=== PATIENT | male | born 1995 | race Caucasian/White ===

== ENCOUNTER 2017-10-13 19:48 | Inpatient (IN) | payer MEDICAID ==
[~2017-10-13] VITALS: Ht 165.1 cm; Wt 79.1 kg
[2017-10-13 19:57] VITALS: Ht 165.1 cm; Wt 79.1 kg
[2017-10-13 22:07] LABS: BASOPHIL % 0.3 % (0-2); PLATELET COUNT 279 x10^3mcL (130-400); RED CELL DISTRIBUTION WIDTH 12.9 % (11.5-14.5)
[2017-10-13 22:28] LABS: ALBUMIN 3.9 g/dL (3.4-5.0); ALKALINE PHOSPHATASE 80 U/L (46-116); ALT/SGPT 34 U/L (16-63); AST/SGOT 17 U/L (15-37); BILIRUBIN TOTAL 0.76 mg/dL (0.20-1.00); CALCIUM 9.1 mg/dL (8.5-10.1); CARBON DIOXIDE 25.3 mmol/L (21-32); CHLORIDE SERUM 104 mmol/L (98-107); CREATININE SERUM 0.8 mg/dL (0.7-1.3); GFR1 > 60 mL/min; GLUCOSE SERUM 98 mg/dL (74-106); POTASSIUM SERUM 3.6 mmol/L (3.5-5.1); SODIUM SERUM 141 mmol/L (136-145); TOTAL PROTEIN, SERUM 6.7 g/dL (6.4-8.2)
[2017-10-13 22:31] LABS: MAGNESIUM 2.1 mg/dL (1.8-2.4); PHOSPHOROUS 4.5 mg/dL (2.5-4.9)
[2017-10-13 22:32] LABS: CHOLESTEROL/HDL RATIO 2.4
[2017-10-13 22:44] LABS: FREE T4 1.29 ng/dL (0.76-1.46); FREE THYROXINE INDEX 2.7 ug/dL (1.4-4.5); T4(THYROXINE) 7.7 ug/dL (4.7-13.3)
[2017-10-13 22:50] LABS: T3 TOTAL 1.2 ng/mL
[2017-10-13 23:05] VITALS: BP 134/73
[2017-10-14 01:04] LABS: UA SPECIFIC GRAVITY 1.025 (1.005-1.035); microscopic required? YES; urine erythrocyte TRACE (NEGATIVE)
[2017-10-14 01:14] LABS: AMPHETAMINE QUAL UR NONE DETECTED (NEG <=1000)
[2017-10-14 04:48] VITALS: BP 112/66
[2017-10-14 09:24] VITALS: BP 135/90
[2017-10-14 13:35] VITALS: BP 116/68
[2017-10-14 17:06] VITALS: BP 123/84
[2017-10-14 21:50] VITALS: BP 137/77
[2017-10-15 03:58] LABS: BASOPHIL % 0.4 % (0-2); PLATELET COUNT 249 x10^3mcL (130-400); RED CELL DISTRIBUTION WIDTH 12.6 % (11.5-14.5)
[2017-10-15 04:16] LABS: CALCIUM 8.4 mg/dL (8.5-10.1); CARBON DIOXIDE 28.5 mmol/L (21-32); CHLORIDE SERUM 104 mmol/L (98-107); CREATININE SERUM 0.9 mg/dL (0.7-1.3); GFR1 > 60 mL/min; GLUCOSE SERUM 94 mg/dL (74-106); PHOSPHOROUS 4.7 mg/dL (2.5-4.9); POTASSIUM SERUM 3.9 mmol/L (3.5-5.1); SODIUM SERUM 141 mmol/L (136-145)
[2017-10-15 06:22] VITALS: BP 106/66
[2017-10-15 09:00] VITALS: BP 123/87
[2017-10-15 13:22] VITALS: BP 120/69
[2017-10-15 17:24] VITALS: BP 122/74
[2017-10-15 21:42] VITALS: BP 136/82
[2017-10-16 05:55] VITALS: BP 132/84
[2017-10-16 06:26] LABS: BASOPHIL % 0.3 % (0-2); PLATELET COUNT 240 x10^3mcL (130-400); RED CELL DISTRIBUTION WIDTH 12.6 % (11.5-14.5)
[2017-10-16 06:52] LABS: CALCIUM 9.3 mg/dL (8.5-10.1); CARBON DIOXIDE 25.8 mmol/L (21-32); CHLORIDE SERUM 100 mmol/L (98-107); CREATININE SERUM 0.8 mg/dL (0.7-1.3); GFR1 > 60 mL/min; GLUCOSE SERUM 89 mg/dL (74-106); PHOSPHOROUS 4.5 mg/dL (2.5-4.9); SODIUM SERUM 136 mmol/L (136-145)
[2017-10-16 09:06] VITALS: BP 135/79
[2017-10-16 13:38] VITALS: BP 152/87
[2017-10-16 15:41] VITALS: BP 128/71
[2017-10-16 20:41] VITALS: BP 126/79
[2017-10-17 06:48] VITALS: BP 125/71
[2017-10-17 06:51] LABS: CALCIUM 8.9 mg/dL (8.5-10.1); CARBON DIOXIDE 27.9 mmol/L (21-32); CHLORIDE SERUM 98 mmol/L (98-107); GFR1 > 60 mL/min; GLUCOSE SERUM 107 mg/dL (74-106); PHOSPHOROUS 4.3 mg/dL (2.5-4.9); POTASSIUM SERUM 3.9 mmol/L (3.5-5.1); SODIUM SERUM 136 mmol/L (136-145)
[2017-10-17 09:14] LABS: BASOPHIL % 0.3 % (0-2); PLATELET COUNT 259 x10^3mcL (130-400); RED CELL DISTRIBUTION WIDTH 12.4 % (11.5-14.5)
[2017-10-17 09:30] VITALS: BP 129/88
[2017-10-17] MEDS ORDERED: COLACE100 MG PO (10:29)
[2017-10-17] MEDS ORDERED: NORCO1 TA2 PO (10:29)
[2017-10-17 11:02] VITALS: BP 129/88
== END 2017-10-17 15:28 | disposition home or self-care (01) | DRG 313 ==
LOC: ED 19:48 → DU 21:23
PROVIDERS: Emergency Medicine; Family Medicine; Family Medicine Sports Medicine; Podiatrist
PROC: 0QSG04Z Reposition Right Tibia with Internal Fixation Device, Open Approach (ICD-10-PCS; 2017-10-16)
PROC: 0QSJ04Z Reposition Right Fibula with Internal Fixation Device, Open Approach (ICD-10-PCS; principal; 2017-10-16 09:30)
DX: S82.851A Displaced trimalleolar fracture of right lower leg, initial encounter for closed fracture (principal); E78.5 Hyperlipidemia, unspecified; E86.0 Dehydration; D72.829 Elevated white blood cell count, unspecified; F17.210 Nicotine dependence, cigarettes, uncomplicated; Z72.89 Other problems related to lifestyle; Y93.89 Activity, other specified; Z83.3 Family history of diabetes mellitus; Y92.89 Other specified places as the place of occurrence of the external cause; Y99.8 Other external cause status; V29.9XXA Motorcycle rider (driver) (passenger) injured in unspecified traffic accident, initial encounter; Y93.55 Activity, bike riding
CPT/HCPCS: 76001; 83880; 84439; 94150; 97110-GP; 97116-GP; 97530-GP; C1713; J0690; J1170; J1644; J1885; J2060; J2250; J2270; J2704; J3010; J3490; J7030; J7120; Q0092